=== PATIENT | female | born 1985 | race Caucasian/White ===

== ENCOUNTER 2022-03-29 13:28 | Outpatient (REF) | payer OTHER, SELFPAY ==
[2022-04-04 16:02] LABS: HPV mRNA E6/E7 rflx Not Detected (Not Detected)
== END 2022-03-29 13:29 | disposition home or self-care (01) ==
LOC: HO.LNP 13:28
PROVIDERS: Visit Provider Obstetrics & Gynecology
DX: Z01.419 Encounter for gynecological examination (general) (routine) without abnormal findings (principal)
CPT/HCPCS: 87624; 88142

== ENCOUNTER 2023-08-13 14:57 | Outpatient (AMB) | payer OTHER, SELFPAY ==
[2023-08-13 15:12] VITALS: BP 124/68; BMI 27.4
--- NOTE | 2023-08-13 15:12 | MHC.OFFVIS ---
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 No complaints. 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 Sexual orientation: Straight/Heterosexual Gender identity: Female Female Reproductive History Menstrual Age of Menarche: 16 Duration of menses: 3-5 days Date of last menstrual period: 07/24/23 control method: progestin IUCD Total pregnancies: 1 Full term: 1 Number of Living Children: 1 Date of last pap smear: 03/30/22 (negative) Review of Systems Const All systems reviewed & are unremarkable except as noted in HPI and below Card Reports as per HPI Resp Reports as per HPI GI Reports as per HPI and Reports no additional complaints Reports as per HPI Physical Exam Vital Signs: Last Vital Signs BP 124/68 08/13/23 15:12 BMI result Body Mass Index 27.4 Const General: cooperative, healthy appearing and comfortable Chest Chest palpation & inspection: normal inspection of the chest and normal palpation of entire chest wall Breast/axilla inspection: normal inspection of the breasts and normal inspection of the axillae Breast/axilla palpation: normal palpation of the breasts, normal palpation of the axillae and no axillary lymphadenopathy Resp Effort & Inspection: normal respiratory effort Auscultation: clear to auscultation bilaterally Percussion: percussion normal Cardio Palpation: normal PMI Rate: regular rate Rhythm: regular rhythm Heart sounds: no murmurs and no rubs Peripheral pulses: Peripheral pulses 2+ throughout GI Inspection: Yes normal to inspection Palpation (GI): Soft to palpation, nontender, no guarding, not rigid and No hepatosplenomegaly present Percussion: Yes normal to percussion Auscultation: normal bowel sounds Rectal Exam - Female: deferred General: Yes bladder normal to palpation External Female Exam: No lesion Speculum Exam - Vagina: normal appearance of the vagina, normal palpation, normal vaginal discharge and not erythematous Speculum Exam - Cervix: normal appearance of the cervix and normal palpation Bimanual exam- vagina & uterus: normal bimanual exam, normal palpation, uterine size normal, bladder normal to palpation, consistency normal and normal palpation Bimanual Exam- Adnexa, other: normal adnexae, no masses and no tenderness Assessment & Plan Assessment & Plan (1) Well woman exam: Code(s): Z01.419 - Encounter for gynecological examination (general) (routine) without abnormal findings Plan: Cotesting not indicated this year. Counseled the patient about the recommended dietary allowance of 1000 mg of Calcium & 600 IU of vitamin D. The patient was instructed to perform monthly self-breast exams and to schedule an annual exam in a year; All questions answered and the patient verbalized understanding. Instructed the patient to schedule annual exam in a year Coding Level of Care Code Est Pt Prev Care 18-39y(59309) Diagnoses Well woman exam Z01.419
== END 2023-08-13 16:18 | disposition home or self-care (01) ==
LOC: HO.HWS 14:59
PROVIDERS: PCP Specialist; Visit Provider Obstetrics & Gynecology
DX: Z01.419 Encounter for gynecological examination (general) (routine) without abnormal findings (principal)
CPT/HCPCS: 99395

== ENCOUNTER → 2023-08-13 14:57 | Outpatient (BNVA) | payer OTHER, SELFPAY | PROVIDERS: PCP Specialist; Visit Provider Obstetrics & Gynecology ==

== ENCOUNTER 2024-10-08 08:50 | Outpatient (AMB) | payer OTHER, SELFPAY ==
--- NOTE | 2024-10-08 08:56 | A.OFFVIS_ITS ---
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 No complaints. Requesting Mirena IUD removal. 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 Sexual orientation: Straight/Heterosexual Gender identity: Female Female Reproductive History Menstrual Age of Menarche: 16 Date of last menstrual period: 09/29/24 control method: progestin IUCD Total pregnancies: 1 Full term: 1 Number of Living Children: 1 Date of last pap smear: 03/30/22 Review of Systems Const All systems reviewed & are unremarkable except as noted in HPI and below Card Reports as per HPI Resp Reports as per HPI GI Reports as per HPI and Reports no additional complaints Reports as per HPI Physical Exam Const General: cooperative, healthy appearing and comfortable Chest Chest palpation & inspection: normal inspection of the chest and normal palpation of entire chest wall Breast/axilla inspection: normal inspection of the breasts and normal inspection of the axillae Breast/axilla palpation: normal palpation of the breasts, normal palpation of the axillae and no axillary lymphadenopathy Resp Effort & Inspection: normal respiratory effort Auscultation: clear to auscultation bilaterally Percussion: percussion normal Cardio Palpation: normal PMI Rate: regular rate Rhythm: regular rhythm Heart sounds: no murmurs and no rubs Peripheral pulses: Peripheral pulses 2+ throughout GI Inspection: Yes normal to inspection Palpation (GI): Soft to palpation, nontender, no guarding, not rigid and No hepatosplenomegaly present Percussion: Yes normal to percussion Auscultation: normal bowel sounds Rectal Exam - Female: deferred General: Yes bladder normal to palpation External Female Exam: No lesion Speculum Exam - Vagina: normal appearance of the vagina, normal palpation, normal vaginal discharge and not erythematous Speculum Exam - Cervix: normal appearance of the cervix, normal palpation and Other cervical findings present (IUD string seen in place) Bimanual exam- vagina & uterus: normal bimanual exam, normal palpation, uterine size normal, bladder normal to palpation, consistency normal and normal palpation Bimanual Exam- Adnexa, other: normal adnexae, no masses and no tenderness Office Procedures IUD Insert/Removal Details Details: Counseling/Consent: After discussing with the patient the risks of the procedure including bleeding, infection, scar tissue formation, , possible injury to blood vessels or nerves, chronic arm pain, blood transfusion, and irregular unpredictable bleeding Alternative options were discussed with the patient including but not limited: Do nothing. The patient signed the consent and agreed with the plan; all questions answered. Urine test was done in the office and was negative Preop dx: Requesting IUD removal Op: IUD removal Post op dx: same EBL= 10 cc Procedure: The patient was put in the dorsal lithotomy position a speculum was inserted in the vagina the IUD thread identified. Using a Jennifer clamp the thread was grasped and the IUD pulled out with no complications. The patient tolerated the procedure well and was advised to use a different method for contraception. Discharge instructions: Instructions were given to the pt to call if temp>100.4, abdominal pain heavy vaginal bleeding, n/v occur. The patient verbalized understanding and all questions answered. This note was generated with a voice recognition program. Some errors may have been overlooked during the review of this note. Sometimes these errors may affect the content or meaning of a given sentence. 42448-RYP Removal Procedure code (CPT) selection complete Assessment & Plan Assessment & Plan (1) Well woman exam: Code(s): Z01.419 - Encounter for gynecological examination (general) (routine) without abnormal findings Category: Medical Plan: GC/CT taken. Cotesting not indicated this year. Counseled the patient about the recommended dietary allowance of 1000 mg of Calcium & 600 IU of vitamin D. The patient was instructed to perform monthly self-breast exams and to schedule an annual exam in a year; ParaGard IUD form filled, patient instructed to call day 1 of her next cycle for ParaGard IUD insertion. Instructions given the patient to use backup method for control till then. All questions answered and the patient verbalized understanding. Instructed the patient to schedule annual exam in a year Coding Level of Care Code Est Pt Level 3 (70540) Est Pt Prev Care 18-39y(48212) Diagnoses Well woman exam Z01.419 CPT Codes Details - CPT: 53548-BAQ Removal ([id number])
[2024-10-08 09:04] VITALS: BP 120/72; BMI 26.3
--- OUTSIDE RECORDS SUMMARY | 2024-10-08 09:14 | XMS_ITS | Encounter Summary ---
Author Organization [facility] Address [address] [place] [address] Phone Care Team Providers Care Group Work Program Director Name Role Phone Alia Cosby MD Primary Care Provider [phone] Encounter Details Date Type Department Care Team (Late st Contact Info) Description 04/05/2017 Conversion Encounter [facility] [place] [address] [place] [address] Social History Tobacco Use Types Packs/Day Years Used Date Smoking Tobacco: Never Assessed Comments Unknown Sex and Gender Information Value Date Recorded Sex Assigned at Not on file Legal Sex Female 4:39 PM EDT Gender Identity Not on file Sexual Orientation Not on file documented as of this encounter Plan of Treatment Not on file documented as of this encounter Visit Diagnoses Not on filedocumented in this encounter Care Teams Group Work Program Director Relationship Specialty Start Date End Date Alia Cosby MD [address] [place] [address] PCP - General 01/12/17 documented as of this encounter
--- OUTSIDE RECORDS SUMMARY | 2024-10-08 09:14 | XMS_ITS | Encounter Summary ---
Author Organization [facility] Address [address] [place] [address] Phone Care Team Providers Care Finish Saw Operator Name Role Phone Alia Cosby MD Primary Care Provider [phone] Encounter Details Date Type Department Care Team (Late st Contact Info) Description 08/23/2011 Documentation EM Family Medicine [address] [place] [address] Family Medicine, Physician [address] [place], [place] [id number] Social History Tobacco Use Types Packs/Day Years [...] on filedocumented in this encounter Care Teams Finish Saw Operator Relationship Specialty Start Date End Date Alia Cosby MD [address] [place], [place] [address] [address] PCP - General 01/12/17 documented as of this encounter
--- OUTSIDE RECORDS SUMMARY | 2024-10-08 09:14 | XMS_ITS | Clinical Summary ---
Author Organization [facility] Address [address] [place] [address] Phone Care Team Providers Care Well Logger Name Role Phone Alia Cosby MD Primary Care Provider [phone] Immunizations Immunization Administration Dates Next Due DTP 11/03/1992, 0,04/20/1988,1987,1987 Hep B, ped/adol 02/08/2000,09/13/1999,08/02/1999 Hib (PRP-T) 09/03/1989 MMR 08/02/1999,02/15/1989 OPV 09/03/1989, 8,01/18/1988,1987 Td (adult) (MBL), 2 Lf tetan us toxoid, PF, adsorbed 08/02/1999 Family History Relation Name Status Comments Father Alive Father: Alive a nd well Mother Alive Mother: Alive a nd well Sister Alive Sister: Alive a nd well Social History Tobacco Use Types Packs/Day Years Used Date Smoking Tobacco: Never Assessed Comments Unknown Sex and Gender Information Value Date Recorded Sex Assigned at Not on file Legal Sex Female 4:39 PM EDT Gender Identity Not on file Sexual Orientation Not on file Plan of Treatment Health Maintenance Due Date Last Done Comments DTaP,Tdap,and Td Vaccines (6 - Tdap) 08/03/1999 08/02/1999, 11/03/1992, 09/03/1989, Additional history exists Varicella Vaccines (1 of 2 - 13+ 2-dose series) 08/15/2000 Influenza Vaccines (#1) 2024 COVID-19 Vaccine ( season) 2024 HIB Vaccines Completed 09/03/1989 IPV Vaccines Completed 09/03/1989, 04/04, 01/18/1988, Additional history exists MMR Vaccines Completed 08/02/1999, 02/15/1989 Hepatitis B Vaccines Completed 02/08/2000, 09/13/1999, 08/02/1999 HPV Vaccines Aged Out No longer eligi ble based on patient's age to complete this topic Hepatitis A Vaccines Aged Out No long er eligible based on patient's age to complete this topic Men B Vaccine Aged Out No longer elig ible based on patient's age to complete this topic Meningococcal Vaccine Aged Out No elroy ghulam eligible based on patient's age to complete this topic Pneumococcal Vaccine Aged Out No long er eligible based on patient's age to complete this topic Care Teams Well Logger Relationship Specialty Start Date End Date Alia Cosby MD [address] [place] [address] [place] [id number] PCP - General 01/12/17
== END 2024-10-08 09:33 | disposition home or self-care (01) ==
LOC: HO.HWS 08:50
PROVIDERS: PCP Specialist; Visit Provider Obstetrics & Gynecology
DX: Z01.419 Encounter for gynecological examination (general) (routine) without abnormal findings (principal); Z30.432 Encounter for removal of intrauterine contraceptive device; Z32.02 Encounter for pregnancy test, result negative
CPT/HCPCS: 58301; 99395; 99459

== ENCOUNTER 2024-10-08 08:50 | Outpatient (REF) | payer OTHER, SELFPAY ==
--- OUTSIDE RECORDS SUMMARY | 2024-10-08 10:35 | XMS_ITS | Clinical Summary ---
Author Organization [facility] Address [address] [place] [address] Phone Care Team Providers Care Marketing Instructor Name Role Phone Alia Cosby MD Primary Care Provider [phone] Immunizations Immunization Administration Dates Next Due DTP [...] age to complete this topic Care Teams Marketing Instructor Relationship Specialty Start Date End Date Alia Cosby MD [address] [place] [address] [place] [address] PCP - General 01/12/17
--- OUTSIDE RECORDS SUMMARY | 2024-10-08 10:35 | XMS_ITS | Encounter Summary ---
Author Organization [facility] Address [address] [place] [address] Phone Care Team Providers Care Multigraph Operator Name Role Phone Alia Cosby MD Primary Care Provider [phone] Encounter Details Date Type Department Care Team (Late st Contact Info) Description 08/23/2011 Documentation EM Family Medicine [address] [place] [address] Family Medicine, Physician [address] [place], [place] [id number] Social History Tobacco Use Types Packs/Day Years [...] on filedocumented in this encounter Care Teams Multigraph Operator Relationship Specialty Start Date End Date Alia Cosby MD [address] [place], [place] [address] [address] PCP - General 01/12/17 documented as of this encounter
--- OUTSIDE RECORDS SUMMARY | 2024-10-08 10:35 | XMS_ITS | Encounter Summary ---
Author Organization [facility] Address [address] [place] [address] Phone Care Team Providers Care Door Trimmer Name Role Phone Alia Cosby MD Primary Care Provider [phone] Encounter Details Date Type Department Care Team (Late st Contact Info) Description 04/05/2017 Conversion Encounter [facility] [place] [address] [place] [address] Social History Tobacco Use Types Packs/Day Years [...] on filedocumented in this encounter Care Teams Door Trimmer Relationship Specialty Start Date End Date Alia Cosby MD [address] [place] [address] PCP - General 01/12/17 documented as of this encounter
[2024-10-08 17:14] LABS: CT PCR NOT DETECTED (Not Detect.); NG PCR NOT DETECTED (Not Detect.)
== END 2024-10-08 08:51 | disposition home or self-care (01) ==
LOC: HO.LNP 08:50
PROVIDERS: PCP Specialist; Visit Provider Obstetrics & Gynecology
DX: Z30.431 Encounter for routine checking of intrauterine contraceptive device (principal)
CPT/HCPCS: 58301; 81025; 87491; 87591

== ENCOUNTER 2024-11-05 14:48 | Outpatient (AMB) | payer OTHER, SELFPAY ==
[2024-11-05 14:50] VITALS: BMI 26.3
--- NOTE | 2024-11-05 14:50 | MHC.OFFVIS ---
Vital Signs 11/05/24 14:50 Height 5 ft 7 in Weight 168 lb BMI 26.3 Intake Visit Reasons: Paragard Insertion Site Physician Required: No Information Interpreted: non-clinical & clinical School Office Assistant: School Office Assistant Present (Lilian HENLEY) Accompanied by: Self / Same As Patient Allergies amoxicillin Allergy (Intermediate, Verified 11/05/24 14:57) Rash penicillin V Allergy (Unknown, Verified 11/05/24 14:57) Rash HPI Comments Details: Presenting for ParaGard IUD insertion PFSH Surgical History Hx of tonsillectomy Family History Mother Fibromyalgia Depression Anxiety Social History Household Members: Significant Other Household Members Other:: daughter Housing: Apartment Alcohol intake: current Alcohol intake frequency: a few times a week Patient Tobacco Use Status: Former Tobacco user Tobacco use type: Cigarette Current occupational status: employed Current occupation: [employer] Sexual orientation: Straight/Heterosexual Gender identity: Female Female Reproductive History Menstrual Age of Menarche: 16 Office Procedures IUD Insert/Removal Details Details: The patient is presenting for Paraguard IUD insertion. Her last menstrual period was within the last 5 days, Urine test was done in the office and was negative; All the contraindications were excluded. The following possible complications were discussed with the patient: Intrauterine , Ectopic , Sepsis, Pelvic Infection, Irregular Bleeding, Perforation, Expulsion. The possible adverse effects were discussed with the patient including but not limited to: increased uterine bleeding, dysmenorrhea , others Alternative options were discussed with the patient including but not limited: control pills, patch, NuvaRing, Depo-medroxyprogesterone acetate, Nexplanon, copper IUD, sterilization, vasectomy, others The procedure was explained in detail to patient , at the end patient signed the informed consent obtained. Urine test was done in the office and was negative A no touch technique was used throughout the procedure. A speculum was placed into vagina and cervix was cleaned with betadine). A tenaculum was placed. A plastic sound was advanced through the external and internal os until it reached the fundus of the uterus, the depth was 7 cm. The sound was then withdrawn. The ParaGard IUD was loaded in a sterile manner and advanced into position. The string was visualized and cut to 3 cm. Tenaculum site hemostatic. All instruments removed from vagina. Patient tolerated the procedure well. NO complications were noted. Patient was instructed to call for fever over 100.4, significant pain unrelieved by Motrin, IUD expulsion, heavy bleeding, or abnormal discharge. In addition, the following clinical considerations were discussed with the patient to call for removal: Unexplained fever , or suspected , Pelvic pain or pain during sex ,HIV positive seroconversion in herself or her partner , Possible exposure to sexually transmitted infections Unusual vaginal discharge or genital sores , severe vaginal bleeding or bleeding that lasts a long time, or if she misses a menstrual period, Inability to feel IUD s threads Counseled the patient that the IUD does not protect against STI's, recommended use of condoms for the first 7 days post insertion and explained to the patient that condoms are recommended for patients at risk for sexually transmitted infections. Follow up appointment made for 6 weeks following insertion. This note was generated with a voice recognition program. Some errors may have been overlooked during the review of this note. Sometimes these errors may affect the content or meaning of a given sentence. [id number]-PJS Insertion Procedure code (CPT) selection complete Office Meds ParaGard T 380A 380 square mm intrauterine device Performing Provider: Pérez Adames MD Performing Location: [facility] [place] [facility] Documented (not given) by: Pérez Adames MD on 11/05/24 15:08 Dose Route Admin Location Dispensed Lot Number Expiration Date [facility] Research Technologist 1 device intrauterine ea Results AMB Test Urine AMB Test Urine Negative Last Edit by Lilian Kurtz CMA on 11/05/24 14:58 Assessment & Plan Assessment & Plan (1) Encounter for insertion of ParaGard IUD: Code(s): Z30.430 - Encounter for insertion of intrauterine contraceptive device Category: Medical Plan: ParaGard IUD inserted, see procedure Orders: Orders AMB IUD Insertion/Removal - Patient Supply Today Z30.430 - Encounter for insertion of intrauterine contraceptive device AMB HCG Urine Test Today Z32.02 - Encounter for test, result negative Medications: New ParaGard T 380A (copper) 1 device intrauterine ONCE 1 ea 0RF ParaGard IUD insertion NS Z30.430 - Encounter for insertion of intrauterine contraceptive device Coding Level of Care Code Procedure Only Diagnoses Encounter for insertion of ParaGard IUD Z30.430 CPT Codes Details - CPT: 48718-OBO Insertion ([id number])
--- OUTSIDE RECORDS SUMMARY | 2024-11-05 14:51 | XMS_ITS | Encounter Summary ---
Author Organization [facility] Address [address] [place] [address] Phone Care Team Providers Care Digital Advertising Analyst Name Role Phone Alia Cosby MD Primary Care Provider [phone] Encounter Details Date Type Department Care Team (Late st Contact Info) Description 04/05/2017 Conversion Encounter [facility] [place] [address] [place] [address] Social History Tobacco Use Types Packs/Day Years [...] on filedocumented in this encounter Care Teams Digital Advertising Analyst Relationship Specialty Start Date End Date Alia Cosby MD [address] [place] [address] PCP - General 01/12/17 documented as of this encounter
== END 2024-11-05 15:12 | disposition home or self-care (01) ==
LOC: HO.HWS 14:48
PROVIDERS: PCP Specialist; Visit Provider Obstetrics & Gynecology
DX: Z30.430 Encounter for insertion of intrauterine contraceptive device (principal); Z32.02 Encounter for pregnancy test, result negative
CPT/HCPCS: 58300

== ENCOUNTER → 2024-11-05 14:48 | Outpatient (BNVA) | payer OTHER, SELFPAY | PROVIDERS: PCP Specialist; Visit Provider Obstetrics & Gynecology | DX: Z30.430 Encounter for insertion of intrauterine contraceptive device (principal) | CPT/HCPCS: 58300; 81025; J7300 ==

== ENCOUNTER 2025-01-01 15:41 | Outpatient (AMB) | payer OTHER, SELFPAY ==
--- NOTE | 2025-01-01 15:42 | A.OFFVIS_ITS ---
Vital Signs 01/01/25 15:43 Height 5 ft 7 in Weight 168 lb BMI 26.3 Intake Visit Reasons: 6 iud check Associate Manager Required: No Information Interpreted: non-clinical & clinical Cupola Hoist Operator: Cupola Hoist Operator Present (Lilian HENLEY) Accompanied by: Self / Same As Patient Allergies amoxicillin Allergy (Intermediate, Verified 01/01/25 15:43) Rash penicillin V Allergy (Unknown, Verified 01/01/25 15:43) Rash HPI Comments Details: The patient is presenting for IUD check after 1 st period following IUD insertion. The patient has no complaints periods are normal, not painful, and flow is normal. 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 Sexual orientation: Straight/Heterosexual Gender identity: Female Female Reproductive History Menstrual Age of Menarche: 16 Review of Systems Const All systems reviewed & are unremarkable except as noted in HPI and below Physical Exam Vital Signs: BMI result Body Mass Index 26.3 General: Yes no CVA tenderness External Female Exam: normal external appearance and normal appearance of the urethra Speculum Exam - Vagina: normal appearance of the vagina, normal palpation, no lesions and no masses Speculum Exam - Cervix: normal appearance of the cervix, normal palpation, no lesions, no masses, nontender and Other cervical findings present (IUD string seen in place) Bimanual exam- vagina & uterus: normal bimanual exam, normal palpation, uterine size normal, normal palpation, uterine shape normal, No Cervical tenderness present and non-tender Bimanual Exam- Adnexa, other: normal adnexae Back/Spine/Pelvis Back: no CVA tenderness Assessment & Plan Assessment & Plan (1) IUD check up: Code(s): Z30.431 - Encounter for routine checking of intrauterine contraceptive device Category: Medical Plan: UPT done in the office was negative. Discussed with the patient the finding on physical exam, IUD string in place, the patient was reassured. Instructions given to patient to call in case of temperature above 100.4, severe cramping/pelvic pain, abnormal discharge or abnormal uterine bleeding or if she misses her menstrual cycle. Otherwise follow-up at her annual exam appointment. All questions answered, the patient verbalized understanding. Coding Level of Care Code Est Pt Level 3 (74887) Diagnoses IUD check up Z30.431
--- OUTSIDE RECORDS SUMMARY | 2025-01-01 15:42 | XMS_ITS ---
Author Name [facility] Organization Unknown Care Team Organization Name Specialty Phone Email Start Date End Da te [facility] Termed, PROVIDER Primary Care 06/12/202201/02 [facility] Termed, PROVIDER Primary Care 04/11/202201/02
--- OUTSIDE RECORDS SUMMARY | 2025-01-01 15:42 | XMS_ITS | Encounter Summary ---
Author Organization [facility] Address [address] [place] [address] Phone Care Team Providers Care Landscape Supervisor Name Role Phone Alia Cosby MD Primary Care Provider [phone] Encounter Details Date Type Department Care Team (Late st Contact Info) Description 04/05/2017 Conversion Encounter [facility] [place] [address] [place] [address] Social History Tobacco Use Types Packs/Day Years [...] on filedocumented in this encounter Care Teams Landscape Supervisor Relationship Specialty Start Date End Date Alia Cosby MD [address] [place] [address] PCP - General 01/12/17 documented as of this encounter
[2025-01-01 15:43] VITALS: BMI 26.3
== END 2025-01-01 15:49 | disposition home or self-care (01) ==
LOC: HO.HWS 15:41
PROVIDERS: PCP Specialist; Visit Provider Obstetrics & Gynecology
DX: Z30.431 Encounter for routine checking of intrauterine contraceptive device (principal); Z32.02 Encounter for pregnancy test, result negative
CPT/HCPCS: 99213

== ENCOUNTER → 2025-01-01 15:41 | Outpatient (BNVA) | payer OTHER, SELFPAY | PROVIDERS: PCP Specialist; Visit Provider Obstetrics & Gynecology | DX: Z30.431 Encounter for routine checking of intrauterine contraceptive device (principal); Z32.02 Encounter for pregnancy test, result negative | CPT/HCPCS: 81025 ==